=== PATIENT | male | born 1970 | race Caucasian/White ===

== ENCOUNTER 2020-04-23 08:28 | Day surgery (SDC) | payer BC ==
[~2020-04-23 08:28] MED LIST: Lactated Ringers 1,000 ML IV SCH; Sodium Chloride 0.9% 10 ML Syringe FLUSH PRN
[2020-04-23] MEDS ORDERED: Propofol 200 MG/20 ML SDV IV ONE (08:29)
--- NOTE | 2020-04-23 10:28 | PCM.OPNOTE ---
- General Post-Op/Procedure Note Date of Surgery/Procedure: 04/23/20 Operative Procedure(s): c scope with hot loop snare bx Findings: sigmoid colon polyp internal hemorrhoids grade I Pre Op Diagnosis: bleeding per rectum Post-Op Diagnosis: sigmoid colon polyp. internal hemorrhoids grade I Anesthesia Technique: MAC Primary Surgeon: Mg Arrington Anesthesia Provider: Lilly Lewis Pathology: polyp Complications: None Condition: Good Free Text/Narrative:: see dictation #[id number]
--- NOTE | 2020-04-23 12:23 | OR ---
DATE OF OPERATION: 04/23/2020 SURGEON: Mg Arrington MD PROCEDURE PERFORMED: Colonoscopy with hot loop snare biopsy. PREOPERATIVE DIAGNOSES: 1. Bleeding per rectum. 2. Family history of colon polyps. POSTOPERATIVE DIAGNOSIS: Sigmoid polyp as well as internal hemorrhoids grade 1. INDICATIONS FOR PROCEDURE: This 50-year-old white male, referred with a history of some intermittent bleeding per rectum, which has since resolved. This is bright red in nature. In addition, he has a family history of colon polyps. He was offered and accepted colonoscopy. DESCRIPTION OF OPERATION: After an excellent IV sedation was administered, digital rectal exam was performed. No marked abnormality was noted. Flexible colonoscope was inserted and advanced to the cecum after identifying the cecum by its anatomic landmarks. The scope was slowly withdrawn and then the following findings were noted: Ascending colon, unremarkable. Transverse colon, unremarkable. Descending colon, unremarkable. Sigmoid, approximately 20 cm small pedunculated polyp, was biopsied with the hot loop snare and submitted in a single container. Rectum and anus on retroflexing the scope there was some evidence of grade 1 internal hemorrhoids which appears to be the presumed cause of the patient's bleeding. The patient's colon was deflated. Scope was removed. The patient tolerated the procedure well, was taken to Recovery. We will be sending him results by letter. /[id number] /[id number]
== END 2020-04-23 10:23 | disposition home or self-care (01) ==
LOC: FB.SDS 08:28
PROVIDERS: ATTEND Surgery
DX: D12.5 Benign neoplasm of sigmoid colon (principal); K64.0 First degree hemorrhoids; Z83.71 Family history of colonic polyps; Z79.899 Other long term (current) drug therapy
CPT/HCPCS: 00811; 45385; 88305; J2704; J7120